=== PATIENT | male | born 1980 | race African-American/Black ===

== ENCOUNTER 2023-09-22 22:40 | Emergency (ER) | payer OTHER ==
[2023-09-22 22:47] VITALS: RESP 18; BMI 26.4
[2023-09-22] MEDS ORDERED: ACETAMINOPHEN INJECTION 100 ML IVPB ONE (23:52)
[2023-09-22] MEDS ORDERED: FAMOTIDINE 20 MG/50 ML IVPB 20 MG/50 ML MG IVPB ONE (23:53)
[2023-09-22] MEDS ORDERED: MAG HYDROX/AL HYDROX/SIMETH 30 ML UNIT-DOSE CUP ONE (23:53)
[2023-09-22] MEDS ORDERED: ONDANSETRON 4 MG/2 ML VIAL ONE (23:53)
[2023-09-23] MEDS: FAMOTIDINE 20 MG/50 ML IVPB 20 MG/50 ML MG IVPB ONE (00:40)
[2023-09-23] MEDS: ACETAMINOPHEN 1000 MG/100 ML BAG IVPB ONE (00:40)
[2023-09-23] MEDS: ONDANSETRON 4 MG/2 ML VIAL IVPUSH ONE (00:40)
[2023-09-23] MEDS: MAG HYDROX/AL HYDROX/SIMETH 30 ML UNIT-DOSE CUP PO ONE (00:40)
[2023-09-23 01:00] LABS: BASO % 0.2 % (0-2.0); EOS % 0.5 % (0-4.5); HEMATOCRIT 43.7 % (35.4-49); HEMOGLOBIN 14.7 GM/dL (11.7-16.9); LYMPH % 12.8 % (8-40); MCH 27.5 pg (25.7-33.7); MCHC 33.5 g/dl (32.0-35.9); MEAN CELL VOLUME 82.1 fl (80-96); MEAN PLT VOLUME 9.1 fl (7.5-11.1); MONO % 8.5 % (3.8-10.2); PLATELET COUNT 180 10^3/uL (134-434); RBC 5.32 M/mm3 (4.00-5.60); RDW 14.6 % (11.9-15.9); WHITE BLOOD COUNT 8.1 K/mm3 (4.0-10.0)
[2023-09-23 01:18] LABS: POTASSIUM 5.5 mmol/L (3.5-5.1)
[2023-09-23 01:23] LABS: BLOOD UREA NITROGEN 17.2 mg/dL (7-18); CALCIUM 9.4 mg/dL (8.5-10.1)
[2023-09-23 01:24] LABS: ALBUMIN 3.8 g/dl (3.4-5.0)
[2023-09-23 01:26] LABS: CREATININE 1.1 mg/dL (0.55-1.3)
[2023-09-23 01:28] LABS: BILIRUBIN,TOTAL 0.7 mg/dL (0.2-1); TOT PROT 7.2 g/dl (6.4-8.2)
[2023-09-23 04:39] LABS: URINE APPEARANCE CLEAR; URINE BILIRUBIN NEGATIVE (NEGATIVE); URINE COLOR YELLOW; URINE GLUCOSE (UA) NEGATIVE (NEGATIVE); URINE KETONE NEGATIVE (NEGATIVE)
[2023-09-23 04:40] LABS: URINE LEUK ESTERASE 1+ (NEGATIVE); URINE NITRITE NEGATIVE (NEGATIVE); URINE PROTEIN NEGATIVE (NEGATIVE)
[2023-09-23 05:39] VITALS: BP 104/61; PULSE 71; TEMP 97.9
== END 2023-09-23 05:40 | disposition home or self-care (01) ==
LOC: JER 22:40
PROC: 3E033GC Introduction of Other Therapeutic Substance into Peripheral Vein, Percutaneous Approach (ICD-10-PCS; principal; 2023-09-23)
PROC: 3E030NZ Introduction of Analgesics, Hypnotics, Sedatives into Peripheral Vein, Open Approach (ICD-10-PCS; 2023-09-23)
PROC: 3E0303Z Introduction of Anti-inflammatory into Peripheral Vein, Open Approach (ICD-10-PCS; 2023-09-23)
DX: K29.70 Gastritis, unspecified, without bleeding (principal); E73.9 Lactose intolerance, unspecified; R10.13 Epigastric pain; R11.0 Nausea
CPT/HCPCS: 36415; 74177-TC; 76705-TC; 80053; 81003; 83690; 85025; 87086; 87491; 87591; 93005; 93010; 99285-25; J0131; Q9967